=== PATIENT | female | born 1965 | race Two or more races ===

== ENCOUNTER → 2021-01-05 15:12 | Outpatient (CLI) | payer MEDICAID, SELFPAY ==
[2021-01-05 14:36] VITALS: BMI 23.1
[2021-01-05 17:08] LABS: Anion Gap 5 (5-15); BUN 14 mg/dL (7-18); BUN/Creat Ratio 16.8 RATIO (10-20); Calcium,Total 11.2 mg/dL (8.5-10.1); Chloride 109 mmol/L (98-107); Creatinine, Serum 0.83 mg/dL (0.55-1.02); EST Glomerular Filtration Rate 76 mL/min (>60); Est Glom Filt Rate - Afr Amer 92 mL/min (>60); Glucose 89 mg/dL (74-106); Potassium 4.1 mmol/L (3.5-5.1); Sodium Level 141 mmol/L (136-145)
[2021-01-05 17:17] LABS: Vitamin D,25 Hydroxy 41.5 ng/mL
[2021-01-06 08:10] LABS: PTHIN 47.1 pg/mL (18.4-80.1)
== END ==
PROVIDERS: PCP Nurse Practitioner Adult Health; Referring Provider Internal Medicine Endocrinology, Diabetes & Metabolism; Visit Provider Internal Medicine Endocrinology, Diabetes & Metabolism
DX: E21.3 Hyperparathyroidism, unspecified (principal); E55.9 Vitamin D deficiency, unspecified
CPT/HCPCS: 36415; 80048; 82306; 83970

== ENCOUNTER → 2021-01-15 08:50 | Outpatient (CLI) | payer MEDICAID, SELFPAY ==
[2021-01-05 14:36] VITALS: BMI 23.1
--- NOTE | 2021-01-15 08:58 | NM_ITS ---
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 WHOLE BODY 99m Tc MDP RADIONUCLIDE BONE SCINTIGRAPHY COMPARISON: None available FINDINGS: Following the intravenous administration of 25.0 mCi of 99m Tc MDP, whole body bone images reveal: 1. Focal increased radiopharmaceutical concentration is defined in the distal right femoral metaphysis medial femoral condyle, the distal right radial diaphysis. 2. There is increased tracer uptake identified in the medial and lateral cortical compartments of the visualized bilateral proximal-distal femoral and tibial diaphyses. 3. Facilitated uptake is noted in the sternoclavicular and glenohumeral compartment of the right shoulder, patellofemoral compartments of both knees, medial tibial compartment of the left knee, the right wrist. 4. The remaining skeletal structures are scintigraphically unremarkable with the bilateral renal images and urinary bladder activity identified. Prominent collecting system activity is defined in the left kidney extending from the superior-inferior pole calyces, renal pelvis to the distal ureter. 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 NM/Bone Scan Whole Body IMPRESSION: 1. The increase in tracer concentration defined in the distal right femur and radius may be further investigated with plain film radiography. 2. Enhanced radiopharmaceutical distribution observed in the medial and lateral cortical compartment is of the bilateral proximal-distal femoral and tibial diaphysis is consistent with the pattern associated with periostitis which may be attributed to hypertrophic osteoarthropathy. 3. Degenerative arthritis appears expressed in the right shoulder, bilateral knees, the right wrist. Electronically Signed: Desmond Allen DO at 7:42 EDT Tel , Service support ,
== END ==
PROVIDERS: PCP Nurse Practitioner Adult Health; Referring Provider Internal Medicine Endocrinology, Diabetes & Metabolism; Visit Provider Internal Medicine Endocrinology, Diabetes & Metabolism
DX: E83.52 Hypercalcemia (principal); Z85.830 Personal history of malignant neoplasm of bone
CPT/HCPCS: 78306

== ENCOUNTER → 2021-02-04 15:05 | Outpatient (CLI) | payer MEDICAID, SELFPAY ==
[2021-01-05 14:36] VITALS: BMI 23.1
[2021-02-04 15:15] VITALS: BP 103/74; PULSE 79; RESP 16; TEMP 36.8; O2SAT 97; BMI 23.0
[2021-02-04] MEDS: Zoledronic Acid 5 MG 100 ML 300 MG IV (15:26)
[2021-02-04] MEDS: 0.9% NaCl Peripheral Flush Adult/Peds IV (15:26)
[2021-02-04 15:52] VITALS: BP 108/59; PULSE 72; RESP 16; TEMP 36.6; O2SAT 100
== END ==
PROVIDERS: PCP Nurse Practitioner Adult Health; Referring Provider Internal Medicine Endocrinology, Diabetes & Metabolism; Visit Provider Internal Medicine Endocrinology, Diabetes & Metabolism
DX: M81.0 Age-related osteoporosis without current pathological fracture (principal)
CPT/HCPCS: 96365; A4216; J3489

== ENCOUNTER → 2022-07-15 | Outpatient (CLI) | payer MEDICARE, MEDICAID, SELFPAY ==
[2022-07-15 12:21] VITALS: BP 101/63; PULSE 84; RESP 16; TEMP 36.2; O2SAT 97; BMI 21.8
[2022-07-15] MEDS: 0.9% NaCl Peripheral Flush Adult/Peds IV (12:23)
[2022-07-15] MEDS: Zoledronic Acid 5 MG 100 ML 300 MG IV (12:32)
[2022-07-15 13:02] VITALS: BP 94/62; PULSE 75; RESP 16; O2SAT 99
== END | disposition home or self-care (01) ==
LOC: MEDOUTP 12:16
PROVIDERS: PCP Nurse Practitioner Adult Health; Referring Provider Internal Medicine Endocrinology, Diabetes & Metabolism; Visit Provider Internal Medicine Endocrinology, Diabetes & Metabolism
DX: M81.0 Age-related osteoporosis without current pathological fracture (principal)
CPT/HCPCS: 96365; A4216; J3489

== ENCOUNTER → 2022-12-13 | Outpatient (CLI) | payer MEDICARE, MEDICAID, SELFPAY ==
--- NOTE | 2022-12-13 14:48 | US_ITS ---
STUDY: THYROID ULTRASOUND REASON FOR EXAM: Female, 57 years old. Looking for enlarged parathyroid gland TECHNIQUE: Ultrasound evaluation of the thyroid was performed with real-time and static ochoa-scale imaging. COMPARISON: None. FINDINGS: RIGHT LOBE: The right lobe of the thyroid gland measures 4.2 cm x 1.2 cm x 0.8 cm. There is a homogeneous echotexture. There are no demonstrated solid, cystic or complex lesions. Inferior to the right lobe of the thyroid, there is a 4.6 mm x 2.6 mm hypoechoic nodule. This may represent a parathyroid gland. LEFT LOBE: The left lobe of the thyroid gland measures 2.8 cm x 1.0 cm x 0.8 cm. There is a homogeneous echotexture. There are no demonstrated solid, cystic or complex lesions. ISTHMUS: The isthmus measures 1.6 mm. Small benign-appearing left thyroid lobe. US/Thyroid IMPRESSION: Normal ultrasound examination of the thyroid. Findings suggestive of a 4.6 mm x 2.6 mm hypoechoic nodule inferior to the right lobe of the gland. This is suggestive of a small parathyroid. Electronically Signed: Ector Thorne MD at 16:53 EST ,
== END | disposition home or self-care (01) ==
LOC: US 14:47
PROVIDERS: PCP Nurse Practitioner Adult Health; Visit Provider Internal Medicine Endocrinology, Diabetes & Metabolism
DX: E21.3 Hyperparathyroidism, unspecified (principal)
CPT/HCPCS: 76536

== ENCOUNTER → 2022-12-26 | Outpatient (CLI) | payer MEDICARE, MEDICAID, SELFPAY ==
--- NOTE | 2022-12-26 09:53 | NM_ITS ---
CLINICAL: 57-year-old female with history of clinical hyperparathyroidism-hypercalcemia. 99m Tc SESTAMIBI DUAL PHASE PARATHYROID SCINTIGRAPHY COMPARISON: Thyroid ultrasound report 12/13/2022 FINDINGS: Following the intravenous administration of 25.3 mCi of 99m Tc sestamibi, image acquisitions of the anterior neck at approximately 15 minutes and 3.0 hours post radiopharmaceutical provision reveal: 1. Immediate static blood pool acquisitions demonstrate relatively uniform distribution of the radiopharmaceutical to the bilateral right-left thyroid colloid. 2. Delayed images depict relatively symmetric incomplete washout of the radiotracer from the persistently defined thyroid parenchyma without focal retention of the radiopharmaceutical identified. NM/Parathyroid Scan IMPRESSION: 1. NEGATIVE 99m Tc SESTAMIBI PARATHYROID IMAGING DUAL PHASE EXAMINATION. 2. Incomplete-delayed washout of the radiopharmaceutical from the entire functioning thyroid colloid may be secondary to multinodular goiter, chronic lymphocytic thyroiditis. (Contreras, Radiographics 19: 601, 1999). Electronically Signed: Desmond Allen, at 21:07 EDT ,
== END | disposition home or self-care (01) ==
LOC: NM 09:48
PROVIDERS: PCP Nurse Practitioner Adult Health; Referring Provider Internal Medicine Endocrinology, Diabetes & Metabolism; Visit Provider Internal Medicine Endocrinology, Diabetes & Metabolism
DX: E21.3 Hyperparathyroidism, unspecified (principal)
CPT/HCPCS: 78070; A9500

== ENCOUNTER 2023-07-17 13:55 | Outpatient (CLI) | payer MEDICARE, MEDICAID, SELFPAY ==
[2023-07-17 14:11] VITALS: BP 102/61; PULSE 83; RESP 16; TEMP 36.1; O2SAT 100
[2023-07-17] MEDS: 0.9% NaCl Peripheral Flush Adult/Peds IV (14:20)
[2023-07-17] MEDS: Zoledronic Acid 5 MG 100 ML 300 MG IV (14:26)
[2023-07-17 14:49] VITALS: BP 114/73; PULSE 72; RESP 16; TEMP 36; O2SAT 100
== END 2023-07-17 13:56 | disposition home or self-care (01) ==
LOC: MEDOUTP 13:57
PROVIDERS: PCP Nurse Practitioner Adult Health; Referring Provider Internal Medicine Endocrinology, Diabetes & Metabolism; Visit Provider Internal Medicine Endocrinology, Diabetes & Metabolism
DX: M81.0 Age-related osteoporosis without current pathological fracture (principal)
CPT/HCPCS: 96365; A4216; J3489

== ENCOUNTER 2025-02-11 13:43 | Outpatient (CLI) | payer MEDICARE, MEDICAID, SELFPAY ==
[2025-02-11 14:00] VITALS: BP 123/67; PULSE 77; RESP 16; TEMP 35.6; O2SAT 100; BMI 23.8
[2025-02-11] MEDS: Zoledronic Acid 5 MG 100 ML 300 MG IV (14:15)
[2025-02-11 14:41] VITALS: BP 117/73; PULSE 64; RESP 16; TEMP 35.3; O2SAT 99
== END 2025-02-11 23:59 | disposition home or self-care (01) ==
LOC: MEDOUTP 13:45
PROVIDERS: PCP Nurse Practitioner Adult Health; Referring Provider Internal Medicine Endocrinology, Diabetes & Metabolism; Visit Provider Internal Medicine Endocrinology, Diabetes & Metabolism
DX: M81.0 Age-related osteoporosis without current pathological fracture (principal)
CPT/HCPCS: 96365; J3489

== ENCOUNTER → 2025-02-20 | Outpatient (CLI) | payer MEDICARE, MEDICAID, SELFPAY ==
--- NOTE | 2025-02-20 08:45 | RAD_ITS ---
PROCEDURE: ESOPHAGUS DUAL CONTRAST 02/20/2025 REASON FOR EXAM: DYSPHAGIA TECHNIQUE: Single and double contrast esophagram. COMPARISON: None. FINDINGS: A very small sliding-type hiatal hernia is seen. No area of esophageal narrowing is noted. The esophagogastric junction is widely patent. No esophageal spasm was seen during the time of this examination. No focal esophageal abnormality is seen. Recurrent gastroesophageal reflux to the proximal esophagus was noted during the examination. Limited imaging of the stomach and duodenum demonstrate no abnormality. RAD/Esophagus Dual Contrast IMPRESSION: 1. Recurrent gastroesophageal reflux, including to the proximal esophagus. 2. Very small sliding-type hiatal hernia. Reading Location: [place] [id number]
== END | disposition home or self-care (01) ==
LOC: RAD 08:37
PROVIDERS: PCP Nurse Practitioner Adult Health
DX: R13.10 Dysphagia, unspecified (principal)
CPT/HCPCS: 74221

== ENCOUNTER 2025-04-25 15:00 | Outpatient (RCR) | payer MEDICARE, MEDICAID, SELFPAY ==
--- NOTE | 2025-04-10 16:05 | HP.PTEVAL_ITS ---
Patient's Visit Information Visit Information Visit Information: BASILIO HARRINGTON is a 60 year old F referred to Physical Therapy by Dr. Torin Russell MD with a diagnosis of L knee pain. Date of Evaluation: 04/10/25 Physical Therapist: Dave Pandey, PT, ATC Visit Plan Frequency: 2x /Week Duration: 1 Week Plan: Issue and instruct pt on HEP over next 2 visits consisting of L LE strengthening, balance and proprio, core stab ex's, and HEP Subjective Subjective: A 60 year old female presents with knee pain on the left that started about a few months ago and pain is described as aching and spreads from hip into knee and ankle on the lateral side. Pt pain is worsen with sitting, laying, and kneeling with difficulty getting up but is relieved with movement of any kind. Pt manages pain with Tylenol and topical creams like icy hot, heat seems to help the best. Pt has fear, pain, and unsteadiness with going down stairs and choses to go one step at a time or sideways. Pt reports sleep disturbance due to pain. Pt has 1-3 steps to get in to the home depending of the entrance. Pt reports having x-rays and ultrasound and only reported arthritis in the knee. Pt watches grandkids of spare time and tinkers with things around the house. Pt does not work at this time and is on disability. When pain is at worst it is 8/10 and at its best is 1/10. Pain Left Knee: Pain Intensity (Out of 10): 3 Pain Intensity Range: 1 and 8 Objective Objective: Neuro: B LE sensation is WNL to light touch. Palpation: Significant crepitus with AROM. Minor swelling noted. No significant pain with palpation ROM: R knee 0-134 degrees : L knee 0-10-120 MMT: R knee flex= 30, ext= 34 #F; L knee flex= 13, ext= 21 #F Special testing: Pos McConnels sign Balance/Special Test Scores Lower Extremity Functional Score: 33 Goals Goal 1:: I with HEP Goal Time Frame: 1 Week Rehabilitation Potential Physical Therapy Diagnosis: L knee pain, weakness, and limited ROM secondary to L knee OA Rehabilitation Potential: Good Anticipated Interventions Patient/Client Instruction: Educate patient on: Condition and Plan of Care For the Purpose of:: To improve self management Therapeutic Exercise to Include: Strength training, Endurance training, Balance training, Gait and locomotor training, Active ROM and Dynamic Lumbar Stab ilization For the Purpose of:: To decrease pain, To increase ROM and To improve muscle performance and motor function Text: Thank you for the opportunity to evaluate your patient. For Medicare and Medicare HMO plans, please review the plan of care and approve it. It will need to be FAXED BACK to us at [phone] for Medicare purposes. For Medicare only, by signing this I certify the plan of care. Please let me know if there are questions or concerns regarding this plan of care. Physician Signature:_ Date:
--- NOTE | 2025-06-03 13:13 | HP.PTDCSUM ---
Discharge Summary D/C summary: It has been my pleasure to treat BASILIO HARRINGTON referred by Dr. Torin Russell MD, with the diagnosis of L knee pain for a total of 3 visit(s). Discharge Date: Please see the following information for a summary of their discharge status. Subjective Subjective: My knee isnt bothering me Pain Left Knee: Pain Intensity (Out of 10): 0 Objective Objective/Function: Pt is now I with HEP Goals Goal 1:: I with HEP Plan Plan: Discharge to HEP D/C Information d/c sentence: If there are questions or concerns regarding this patient's physical therapy, please feel free to call me at [phone]. Thank you for the referral of this patient. Sincerely, Dave Pandey, PT, ATC Balance/Gait/Functional tests Balance/Special Test Scores Lower Extremity Functional Score: 33
== END 2025-04-25 19:00 | disposition home or self-care (01) ==
LOC: PT 15:00
PROVIDERS: PCP Nurse Practitioner Adult Health; Referring Provider Internal Medicine Endocrinology, Diabetes & Metabolism; Visit Provider Internal Medicine Endocrinology, Diabetes & Metabolism
DX: M17.10 Unilateral primary osteoarthritis, unspecified knee (principal)
CPT/HCPCS: 97110; 97161

== ENCOUNTER → 2025-06-17 | Outpatient (CLI) | payer MEDICAID, SELFPAY | END | disposition home or self-care (01) | LOC: LABSPEC 16:16 | PROVIDERS: PCP Nurse Practitioner Adult Health; Visit Provider Nurse Practitioner Family | DX: M25.462 Effusion, left knee (principal) | CPT/HCPCS: 87070; 87075; 87205 ==